=== PATIENT | female | born 1960 | race Hispanic/Latino ===

== ENCOUNTER 2016-12-10 13:28 | Inpatient (IN) | payer OTHER ==
--- NOTE | 2016-12-10 13:49 | ED PDOC ---
Arrival/HPI - General Chief Complaint: Palpitations Time Seen by Provider: 12/10/16 13:48 Historian: Patient - History of Present Illness Narrative History of Present Illness (Text): 12/10/16 13:48 A 56 year female, whose past medical history includes Hepatitis C, was sent into the emergency department by PMD complaining of worsening abdominal swelling over the course of 9 months. Patient notes intermittent shortness of breath and dyspnea on exertion since her abd. swelling began 9 months ago. Patient denies any fever, nausea, vomiting, diarrhea, chest pain, shortness of breath or any other complaints. PMD: Dr. Moreira Time/Duration: Other (9 months) Symptom Course: Worsening Quality: Other Context: Other Past Medical History - Provider Review Nursing Documentation Reviewed: Yes - Infectious Disease Hx of Infectious Diseases: None - Tetanus Immunization Tetanus Immunization: Unknown - Past Medical History Past Medical History: No Previous - Cardiac Hx Cardiac Disorders: No - Pulmonary Hx Respiratory Disorders: No - Neurological Hx Neurological Disorder: No - HEENT Hx HEENT Disorder: No - Renal Hx Renal Disorder: No - Endocrine/Metabolic Hx Endocrine Disorders: No - Hematological/Oncological Hx Hepatitis C: Yes - Integumentary Hx Dermatological Disorder: No - Musculoskeletal/Rheumatological Hx Musculoskeletal Disorders: No - Gastrointestinal Hx Gastrointestinal Disorders: (hemmoroids and polyps) - Genitourinary/Gynecological Hx Genitourinary Disorders: No - Psychiatric Hx Depression: Yes Hx Emotional Abuse: No Hx Physical Abuse: No Hx Substance Use: No - Past Surgical History Past Surgical History: No Previous - Anesthesia Hx Anesthesia: No Hx Anesthesia Reactions: No Hx Malignant Hyperthermia: No - Suicidal Assessment Feels Threatened In Home Enviroment: No Family/Social History - Physician Review Nursing Documentation Reviewed: Yes Family/Social History: No Known Family HX Smoking Status: Heavy Smoker > 10 Cigarettes Daily Hx Alcohol Use: Yes Frequency of alcohol use: Few days per week Hx Substance Use: No Substance used: ALCOHOL Hx Substance Use Treatment: Yes (AA) Allergies/Home Meds Allergies/Adverse Reactions: Allergies Penicillins Allergy (Verified 12/10/16 13:40) ANAPHYLAXIS Home Medications: Home Meds Medication Instructions Recorded Confirmed Clonazepam [Klonopin] 1 mg PO BID 03/10/12 01/22/15 Amitriptyline Hydrochloride 100 mg PO HS 01/22/15 01/22/15 [Elavil] Physical Exam - Physical Exam Narrative Physical Exam (Text): - Review of Systems Constitutional: Normal. absent: Fatigue, Weight Change, Fevers Eyes: Normal ENT: Normal Respiratory: (+) Shortness of breath, Dyspnea on exertion absent: Cough, Sputum Cardiovascular: Normal absent: Chest pain, Palpitations, Syncope Gastrointestinal: (+) Abdominal swelling absent: Diarrhea, Nausea, Vomiting Genitourinary: Normal. absent: Dysuria, Frequency, Hematuria Musculoskeletal: Normal. absent: Arthralgias, Back Pain, Neck Pain Skin: Normal Neurological: Normal absent: Focal Weakness Endocrine: Normal Hemo/Lymphatic: Normal Psychiatric: Normal - Physical exam Patient appears age appropriate, speaking full sentences without difficulty - Systems Exam Head: Present: Atraumatic, Normocephalic Pupils: Present: PERRL Extraocular Muscles: Present: EOMI Conjunctiva: Present: Normal Mouth: Present: Moist Mucous Membranes Neck: Present: Normal Range of Motion. No: MIDLINE TENDERNESS, Paraspinal Tenderness Respiratory/Chest: Present: Clear to Auscultation, Good Air Exchange. No: Respiratory Distress, Accessory Muscle Use, Tachypneic Cardiovascular: Present: Regular Rate and Rhythm, Normal S1, S2, Peripheral Pulses Present. No: Murmurs Abdomen: Present: Normal Bowel Sounds, Abdominal distension, no fluid wave No: Tenderness, Peritoneal Signs, Rebound, Guarding, Rebound, Rigidity Back: Present: Normal Inspection. No: Midline Tenderness, Paraspinal Tenderness Upper Extremity: Present: Normal Inspection. No: Cyanosis, Edema Lower Extremity: Present: Normal Inspection. No: Edema Neurological: Present: GCS=15, Speech Normal, cranial nerves II through XII fully intact with no cerebellar abnormality, neuro-sensory fully intact. No focal neurological deficits. Skin: Present: Warm, Dry, Normal Color. No: Rashes Lymphatic: Present: OX3, NI, NC Psychiatric: Present: Alert, Oriented x 3, Normal Insight, Normal Concentration Vital Signs Reviewed: Yes Vital Signs Temp Pulse Pulse Resp BP Pulse Ox 12/10/16 16:50 106 H 18 138/93 H 95 12/10/16 15:28 118 H 24 153/90 H 95 12/10/16 14:15 130 H 12/10/16 13:32 97.8 F 145 H 18 146/96 H 96 Temperature: Afebrile Blood Pressure: Hypertensive Pulse: Tachycardic Respiratory Rate: Normal Appearance: Positive for: Well-Appearing, Non-Toxic, Comfortable Pain Distress: None Mental Status: Positive for: Alert and Oriented X 3 Medical Decision Making ED Course and Treatment: 12/10/16 13:48 Impression: A 56 year old female with worsening abdominal swelling over 9 months. Patient notes some shortness of breath and dyspnea on exertion. Plan: -- Chest xray -- EKG -- Labs -- Urinalysis -- Reassess and disposition Progress Notes: EKG shows sinus tachycardia at [address]-segment elevations, normal intervals. Interpreted by me. 12/10/16 17:47 CT Abd/Pelvis IMPRESSION: Dr. Carolina Diverticulosis of the sigmoid colon with associated wall thickening possibly exaggerated by under distension however diverticulitis is not excluded. Hepatic steatosis. Dr. Lillie rosas, awaiting callback 12/10/16 18:17 pt's HR 120. TSH ordered denies cp/sob/beaulieu at this time pt has also been informed that she needs further testing to r/o PE I expressed my concern that we still have no concrete explanation for pt's symptoms and that she needs to be admitted into the hospital for further workup The patient refuses admission and wishes to leave the Emergency Department against my medical advice. Patient was told that admission to the hospital is necessary and a full explanation of the reasons why was given, and understood by patient. The risks of leaving were explained and include worsening of condition, and permanent disability and from an undiagnosed or untreated condition. The patient accepts these risks, and is in my judgment is competent and capable of understanding the clinical situation and my explanation of the risks of leaving. Patient was given the opportunity to ask questions and change mind. The patient was instructed regarding the best care for the present symptoms, and to follow up with Dr. Moreira as soon as possible, or return to the Emergency Department at any time for continuing care. 12/10/16 18:30 patient changed her mind and now states that she wants to stay in the hospital Dr. Lillie rosas again 12/10/16 19:02 florinda Moreira, agrees with remote tele admission to her service. aware to VQ or CTA to r/o PE Asked for Dr Moon on consult and ECHO - Lab Interpretations Lab Results: 12/10/16 14:20 12/10/16 14:20 Lab Results 12/10/16 14:20: WBC 10.7 D, RBC 4.51, Hgb 15.3, Hct 43.7, MCV 96.9, MCH 33.9, MCHC 35.0, RDW 12.8, Plt Count 325, MPV 9.3, Gran % 68.1 H, Lymph % (Auto) 24.8 , [place] % (Auto) 6.3 H, Eos % (Auto) 0.4 L, Baso % (Auto) 0.4, Gran # 7.28 H, Lymph # 2.7, [place] # 0.7 H, Eos # 0.0, Baso # 0.04, PT 10.6, INR 0.98, APTT 27.8 , Sodium 132, Potassium 4.6, Chloride 96 L, Carbon Dioxide 21, Anion Gap 20, BUN 11, Creatinine 0.9, Est GFR ( Amer) > 60, Est GFR (Non-Af Amer) > 60 , Random Glucose 110, Calcium 10.0, Total Bilirubin 0.8, AST 115 H, ALT 160 H, Alkaline Phosphatase 114, Lactate Dehydrogenase 1026 H, Total Creatine Kinase 145, Troponin I < 0.01, NT-Pro-B Natriuret Pep 68.4, Total Protein 8.6 H, Albumin 4.4, Globulin 4.1, Albumin/Globulin Ratio 1.1, Amylase 37, Lipase 79 12/10/16 14:15: Urine Color Yellow, Urine Appearance Clear, Urine pH 6.0, Ur Specific [place] 1.025, Urine Protein 30 H, Urine Glucose (UA) Negative, Urine Ketones Negative, Urine Blood Trace-lysed H, Urine Nitrate Negative, Urine Bilirubin Negative, Urine Urobilinogen 0.2, Ur Leukocyte Esterase Negative, Urine RBC 0 - 2, Urine WBC 2 - 5, Ur Epithelial Cells 4 - 5, Urine Bacteria Mod 12/10/16 14:00: D-Dimer, Quantitative 1.56 H I have reviewed the lab results: Yes - RAD Interpretation Narrative RAD Interpretations (Text): 12/10/16 18:17 Supervising Fire Marshal : Chinmay Junior MD Approver2 : Report Date : 12/10/2016 16:40:41 My Comment : HISTORY: abd pain COMPARISON: 06/26/2015 FINDINGS: LUNGS: No active pulmonary disease. PLEURA: No significant pleural effusion identified, no pneumothorax apparent. CARDIOVASCULAR: Normal. OSSEOUS STRUCTURES: No significant abnormalities. VISUALIZED UPPER ABDOMEN: Normal. OTHER FINDINGS: None. IMPRESSION: No active disease. Radiology Orders: 12/10/16 13:54 CHEST PORTABLE [RAD] Stat 12/10/16 14:00 ABD & PELVIS IV CONTRAST ONLY [CT] Stat Music Education Adjunct Professor: Radiologist - Medication Orders Current Medication Orders: Discontinued Medications Enoxaparin Sodium (Lovenox) 60 mg SC STAT STA PRN Reason: Protocol Stop: 12/10/16 18:50 Ceftriaxone Sodium (Rocephin 1 Gram Ivpb) 100 mls @ 200 mls/hr IV STAT STA PRN Reason: Protocol Stop: 12/10/16 14:35 Last Admin: 12/10/16 14:36 Dose: 200 MLS/HR eMAR Start Stop Document 12/10/16 14:36 [facility] (Rec: 12/10/16 14:36 [facility] [id number]) Intravenous Solution Start Date 12/10/16 Start Time 14:36 End Date 12/10/16 End time 15:06 Total Infusion Time 30 Sodium Chloride (Sodium Chloride 0.9%) 2,000 mls @ 1,000 mls/hr IV .Q2H STA Stop: 12/10/16 16:05 Last Admin: 12/10/16 14:35 Dose: 1,000 MLS/HR eMAR Start Stop Document 12/10/16 14:35 [facility] (Rec: 12/10/16 14:36 [facility] [id number]) Intravenous Solution Start Date 12/10/16 Start Time 14:36 End Date 12/10/16 End time 16:36 Total Infusion Time 120 Iohexol (Omnipaque 350 100 Ml) Confirm Administered Dose 350 mg .ROUTE .STK-MED ONE Stop: 12/10/16 15:01 - Scribe Statement The provider has reviewed the documentation as recorded by the Antonibmarina Tanner Provider Scribe Attestation: All medical record entries made by the Scribe were at my direction and personally dictated by me. I have reviewed the chart and agree that the record accurately reflects my personal performance of the history, physical exam, medical decision making, and the department course for this patient. I have also personally directed, reviewed, and agree with the discharge instructions and disposition. Disposition/Present on Arrival - Present on Arrival Any Indicators Present on Arrival: No History of DVT/PE: No History of Uncontrolled Diabetes: No Urinary Catheter: No History of Decub. Ulcer: No History Surgical Site Infection Following: None - Disposition Have Diagnosis and Disposition been Completed?: Yes Diagnosis: Abdominal distention Disposition: HOSPITALIZED Disposition Time: 18:21 Patient Plan: Discharge Patient Problems: Current Active Problems Problem Status Diagnosed Abdominal distention Acute Condition: STABLE Discharge Instructions (ExitCare): Abdominal Pain (ED), Dyspnea (ED) Additional Instructions: PLEASE RETURN TO THE EMERGENCY DEPARTMENT FOR NEW OR WORSENING SYMPTOMS. RETURN RIGHT AWAY IF YOU CANNOT FOLLOW UP WITH YOUR PRIMARY CARE DOCTOR, CLINIC, OR SPECIALIST IN 1-2 DAYS. Prescriptions: Moxifloxacin [Avelox] 400 mg PO DAILY #7 tab Referrals: Connie Moreira MD [Primary Care Provider] - Follow up with primary
[2016-12-10] MEDS ORDERED: cefTRIAXone 1 gm 100 ML IV STA (14:06)
[2016-12-10] MEDS ORDERED: Sodium Chloride 0.9% 2,000 ML IV STA (14:06)
[2016-12-10 14:19] LABS: URINE APPEARANCE CLEAR (CLEAR); URINE BILIRUBIN NEGATIVE (NEGATIVE); URINE BLOOD TRACE-LYSED (NEGATIVE); URINE COLOR YELLOW (YELLOW); URINE GLUCOSE (UA) NEGATIVE (NEGATIVE); URINE KETONE NEGATIVE (NEGATIVE); URINE LEUKOCYTE ESTERASE NEGATIVE Leu/uL (NEGATIVE); URINE PROTEIN 30 mg/dL (<30 mg/dL); URINE UROBILINOGEN 0.2 E.U./dL (<1 E.U./dL)
[2016-12-10 14:29] LABS: ADD MANUAL DIFF? NO
[2016-12-10 14:36] LABS: BASO # 0.04 K/mm3 (0.0-2.0); BASO % 0.4 % (0.0-3.0); EOS % 0.4 % (1.5-5.0); GRAN # 7.28 (1.4-6.5); GRAN % 68.1 % (50.0-68.0); HEMATOCRIT 43.7 % (36.0-48.0); LYMPH # 2.7 (1.2-3.4); LYMPH % 24.8 % (22.0-35.0); MEAN CELL VOLUME 96.9 fL (80.0-105.0); MEAN CORPUSCULAR HEMOGLOBIN 33.9 pg (25.0-35.0); MEAN PLATELET VOLUME 9.3 fl (7.0-11.0); MONO # 0.7 (0.1-0.6); MONO % 6.3 % (1.0-6.0); PLATELET COUNT 325 10^3/uL (120.0-450.0); RED CELL DISTRIBUTION WIDTH 12.8 % (11.5-14.5); WHITE BLOOD COUNT 10.7 10^3/ul (4.5-11.0)
[2016-12-10 14:44] LABS: URINE BACTERIA MOD (NEG); URINE RBC 0 - 2 /hpf (0-2)
[2016-12-10 14:45] LABS: INR 0.98 (0.93-1.08); PARTIAL THROMBOPLASTIN TIME 27.8 Seconds (23.7-30.8)
[2016-12-10 14:46] LABS: ALB/GLOB RATIO 1.1 (1.1-1.8); ALKALINE PHOSPHATASE 114 U/L (38-133); ALT/SGPT 160 U/L (7-56); AMYLASE 37 U/L (35-125); AST/SGOT 115 U/L (15-39); BILIRUBIN,TOTAL 0.8 mg/dL (0.2-1.3); BLOOD UREA NITROGEN 11 mg/dL (7-21); CARBON DIOXIDE 21 mmol/L (21-33); CHLORIDE 96 mmol/L (98-107); GFR AFRICAN-AMERICAN > 60; GLUCOSE,RANDOM 110 mg/dL (70-110); LIPASE 79 U/L (23-300); POTASSIUM 4.6 mmol/L (3.6-5.0); SODIUM 132 mmol/L (132-148); TOTAL PROTEIN 8.6 g/dL (5.8-8.3)
[2016-12-10] MEDS ORDERED: Iohexol 350 MG/100 ML VIAL ONE (15:00)
[2016-12-10 15:04] LABS: TROPONIN I < 0.01 ng/mL
--- NOTE | 2016-12-10 15:20 | CARD ---
APPROVED REPORT EKG Measurement Heart [id number] <Conclusion> Sinus tachycardia NSSTW changes
--- NOTE | 2016-12-10 16:42 | RAD ---
HISTORY: abd pain COMPARISON: 06/26/2015 FINDINGS: LUNGS: No active pulmonary disease. PLEURA: No significant pleural effusion identified, no pneumothorax apparent. CARDIOVASCULAR: Normal. OSSEOUS STRUCTURES: No significant abnormalities. VISUALIZED UPPER ABDOMEN: Normal. OTHER FINDINGS: None. IMPRESSION: No active disease.
--- NOTE | 2016-12-10 17:47 | CT ---
PROCEDURE: CT Abdomen and Pelvis with contrast HISTORY: abd pain COMPARISON: None available. TECHNIQUE: Contrast dose: 100 mL Omnipaque 350 Radiation dose: Total exam DLP = 397.46 mGy-cm. This CT exam was performed using one or more of the following dose reduction techniques: Automated exposure control, adjustment of the mA and/or kV according to patient size, and/or use of iterative reconstruction technique. FINDINGS: LOWER THORAX: Minimal bibasilar atelectasis. No visible pleural effusion or pneumothorax. LIVER: Hypoattenuation of the liver compatible with hepatic steatosis. GALLBLADDER AND BILE DUCTS: Unremarkable. PANCREAS: Unremarkable. SPLEEN: Unremarkable. ADRENALS: Unremarkable. KIDNEYS AND URETERS: The kidneys enhance symmetrically. No hydronephrosis or obstructing calculus identified. VASCULATURE: No aortic aneurysm. BOWEL: The stomach is nondistended. Lack of oral contrast limits evaluation for bowel pathology. Bowel loops appear within normal limits of caliber without evidence of obstruction. Diverticulosis of the sigmoid colon with associated wall thickening possibly exaggerated by under distension however diverticulitis is not excluded. APPENDIX: The appendix appears within normal limits of caliber. No secondary signs of acute appendicitis. PERITONEUM: No significant free fluid. No definite free air. LYMPH NODES: No bulky adenopathy identified. BLADDER: Unremarkable. REPRODUCTIVE: The uterus is present. BONES: Degenerative changes of the spine. Osseous demineralization. Scoliosis. OTHER FINDINGS: Tiny fat containing umbilical hernia. IMPRESSION: Diverticulosis of the sigmoid colon with associated wall thickening possibly exaggerated by under distension however diverticulitis is not excluded. Hepatic steatosis. Additional incidental findings as above.
[2016-12-10] MEDS ORDERED: Enoxaparin 60 mg Syringe SC STA (18:49)
[2016-12-10 21:32] VITALS: BMI 26.2
[2016-12-11 08:09] LABS: BLOOD UREA NITROGEN 10 mg/dL (7-21); CALCIUM 8.8 mg/dL (8.4-10.5); CARBON DIOXIDE 22 mmol/L (21-33); CHLORIDE 105 mmol/L (98-107); GFR AFRICAN-AMERICAN > 60; GLUCOSE,RANDOM 94 mg/dL (70-110); POTASSIUM 3.9 mmol/L (3.6-5.0); SODIUM 134 mmol/L (132-148)
--- NOTE | 2016-12-11 09:30 | CON ---
DATE: 12/10/2016 SUBJECTIVE: This patient was seen and evaluated earlier and discussed with Dr. Moreira. This 56-year -old patient with a history of chronic hepatitis , being followed by in , noticed to have significant abdominal distention and weight gain. The patient also complaining of shortness of breath on exertion, sent to the ER for further evaluation. The patient denies any abdominal pain , vomiting, no bleeding per rectum. SOCIAL HISTORY: As above. OTHER PAST MEDICAL HISTORY: Significant for history of anxiety, depression. The patient is on amitr iptyline and also Klonopin. ALLERGIES: PENICILLIN, ANAPHYLACTIC TYPE OF REACTION. REVIEW OF SYSTEMS: All [id number] systems reviewed; positive as above. OBJECTIVE: GENERAL: The patient is lying on the bed. The patient's boyfriend was at bedside. The patient is l kenisha on the bed, not in acute distress. VITAL SIGNS: Pulse 120 per minute, blood pressure is 130/88, respirations 20, O2 saturations 98. HEENT: Atraumatic, anicteric. NECK: Supple. HEART: S1, S2 heard. LUNGS: Bilateral air entry present. ABDOMEN: Soft. Softly distended, no mass, no tenderness. EXTREMITIES: No cyanosis, no clubbing. LABORATORY DATA: Hemoglobin 15.3, hematocrit 43.7, WBC 10.7, platelets 325. LFTs AST is 115, ALT is 160, LDH is . Urinalysis shows trace blood. Chemistry AST is 115, ALT 160, LDH . ASSESSMENT: This 56-year-old patient admitted with a history significant weight gain, abdominal dist ention and shortness of breath. The patient has a history of chronic hepatitis , was being foll owed. The patient had ultrasound scan of the abdomen done, which also showed no ascites, gallbladder normal, common bile duct prominent measuring up to 1.[address] scan of the abdomen and pelvis do ne. The etiology for dilated common bile duct is unclear. Per the patient, gastrointestinal consult was requested to evaluate. The ultrasound was reviewed and no ascites noticed. We would recommend . There is no ascites noted. The liver was very fatty. PLAN: 1. Request for an MRI of the abdomen with MRCP to further evaluate the common bile duct. 2. Start the patient on a clear liquid diet. 3. Request for hepatitis profile, and viral load and genotype. Thank you very much for allowing us to care for this patient. Luisa Moon MD cc: [phone] TT: 12/11/2016 07:51:37 Confirmation # [id number] Dictation # [id number] 12/11/2016 08:30:04
[2016-12-11 09:43] LABS: BILIRUBIN,DIRECT 0.6 mg/dL (0.0-0.4); BILIRUBIN,TOTAL 0.8 mg/dL (0.2-1.3); TOTAL PROTEIN 7.5 g/dL (5.8-8.3)
--- NOTE | 2016-12-11 13:19 | HP ---
HISTORY OF PRESENT ILLNESS: The patient is a 56-year-old known to me from office practice. She was seen in office yesterday with increasing abdominal girth, getting short of breath. She was found to be having palpitation, heart rate of 130. She denies any fever or chills. No cough or congestion. No history of nausea or vomiting, no more bleeding. She does have a history of rectal prolapse. She is being followed by a brickmason contractor in [place], ____. PAST MEDICAL HISTORY: Significant for: 1. Hepatitis C. 2. Chronic degenerative disk disease. 3. Anxiety disorder. ALLERGIES: SHE IS ALLERGIC TO PENICILLIN. MEDICATIONS AT HOME: She is on amitriptyline 100 mg at bedtime, Klonopin 1 mg t.i.d. p.r.n. She is on Percocet that she takes once at bedtime. SOCIAL HISTORY: She is single, lives with her boyfriend and his elderly mother. Currently, smokes, socially drinks. PHYSICAL EXAMINATION: GENERAL: She is awake and alert, communicative. VITAL SIGNS: She is afebrile, pulse upon arrival was 145. She was given dose of atenolol today, it is 81, blood pressure 129/89. LUNGS: Bilateral good airflow, no rhonchi or crackle. HEART: S1, S2 audible. ABDOMEN: Soft, nontender, no rebound, no guarding. NEUROLOGIC: The patient is awake and alert, communicative. LABORATORY EXAMINATION: WBC 10.7, hemoglobin 15, hematocrit 43, platelets 325. Chemistry: Sodium 1 34, potassium 3.9, chloride 105, CO2 of 22, BUN 10, creatinine 0.7, blood sugar of 94, her AST 115, A LT 160. Upon admission, LDH is 1026. CT scan of the abdomen and pelvis does not show ascites; howev er, she has hepatic steatosis. She had diverticulosis, but not associated diverticulitis. ASSESSMENT: 1. Sudden weight gain, etiology still unclear. 2. Hepatitis C. 3. Cirrhosis of liver. 4. Abnormal liver function tests, probably secondary to hepatitis C. PLAN: To have MRCP done. If that is unremarkable, she will be discharged home later on today. I tano l also follow up echocardiogram and Dr. Moon's input noted and appreciated. He ordered for viral load for hep C and genotype. We will follow that and if patient remains stable, MRCP is unremarkabl e, she will be discharged home later on today. Connie Moreira MD cc: [phone] TT: 12/11/2016 13:18:52 tn
[2016-12-11] MEDS ORDERED: Gadodiamide 287 MG/ML VIAL (15ML) IV ONE (15:07)
--- NOTE | 2016-12-11 15:36 | PN ---
DATE: 12/11/2016 Seen and examined at the bedside earlier today. Her is at the bedside. She denies any curre nt nausea, vomiting, or abdominal pain. Her shortness of breath is a little bit better. The patient denies any episodes of diarrhea or any overt GI bleed. VITAL SIGNS: Temperature is 98, blood pressure is 129/89 and pulse 81, respirations 18, 97% on room air. LABORATORIES: Today is sodium 134, K is 3.9, BUN is 10, creatinine 0.7, direct bilirubin is 0.6, AST 82, ALT 119. This is improved. Alkaline phosphatase is 96. PHYSICAL EXAMINATION: HEENT: Sclera is anicteric. NECK: Supple. CARDIAC: S1, S2. LUNGS: With decreased breath sounds, but good bilateral airflow. No rales or wheeze. ABDOMEN: With bowel sounds, softly distended, nontender on palpation. No rebound or guarding, or or ganomegaly. ASSESSMENT: This is a 56-year-old female with a history of hepatitis C and cirrhosis of the liver. She comes with complaints of shortness of breath. The patient is also tobacco user. Complains of dewitt dden weight gain of about 30 pounds in 2 months. She denies nausea, vomiting, no abdominal pain. Co mplains of weight gain of 30 pounds. Denies any anorexia or any overt gastrointestinal bleed. The p atient is noted to have abnormal LFTs, could be secondary to the hepatitis C. PLAN: The patient is waiting to go for an MRCP. She is supposed to go this afternoon. We will foll ow up the viral load for the hepatitis C genotype. Also, continue to trend her LFTs. Continue curre ntly on a heart healthy diet. We will follow up. The patient was seen and case discussed with Dr. Moon. ADDENDUM: The patient had colonoscopy about 2-1/2 years ago, found to have diverticulosis. Deborah Otero FLO cc: [phone] TT: 12/11/2016 15:10:04 Confirmation # [id number] Dictation # [id number]
--- NOTE | 2016-12-11 19:33 | MRI ---
EXAM: MR Abdomen Without Intravenous Contrast, MRCP Protocol CLINICAL HISTORY: 56 years old, female; Pain; Abdominal pain; Generalized; Additional info: Dilated cbd TECHNIQUE: Multiplanar magnetic resonance images of the abdomen without intravenous contrast using MRCP protocol. EXAM DATE/TIME: 12/11/2016 12:47 AM COMPARISON: Recent CT abdomen 12/10/2016 5:11:34 PM EXAM: MR Abdomen Without Intravenous Contrast, MRCP Protocol CLINICAL HISTORY: 56 years old, female; Pain; Abdominal pain; Generalized; Additional info: Dilated cbd TECHNIQUE: Multiplanar magnetic resonance images of the abdomen without intravenous contrast using MRCP protocol. EXAM DATE/TIME: 12/11/2016 12:47 AM COMPARISON: Recent CT abdomen 12/10/2016 5:11:34 PM FINDINGS: BILE DUCTS: Common bile left is mildly dilated, measuring 8 mm (normal less than 6 mm). No cause for this finding is seen on this exam. No evidence of significant intrahepatic biliary ductal dilatation. GALLBLADDER: Within normal limits in appearance. No gallstones seen. No evidence of pericholecystic fluid. LIVER: Fatty infiltration of the liver. No focal lesions seen. PANCREAS: Pancreatic duct is seen, but is not abnormally dilated, measuring 2 mm in diameter. No CT evidence of acute pancreatitis. No definite focal pancreatic lesions identified. IMPRESSION: - Mild dilatation of the common bile duct, 8 mm, cause not identified on this exam. Recommend correlation with LFTs. -See above for remaining findings.
[2016-12-12 09:16] VITALS: BP 141/84; PULSE 99; RESP 19; TEMP 97.5; O2SAT 96
--- NOTE | 2016-12-12 10:39 | CARD ---
APPROVED REPORT EXAM: Two-dimensional and M-mode echocardiogram with Doppler and color Doppler. Other Information Quality : AverageRhythm : INDICATION Dyspnea 2D DIMENSIONS Left Atrium (2D)3.0 (1.6-4.0cm)IVSd1.1 (0.7-1.1cm) LVDd4.0 (3.9-5.9cm)PWd1.0 (0.7-1.1cm) LVDs2.9 (2.5-4.0cm)FS (%) 27.6 % LVEF (%)54.0 (>50%) M-Mode DIMENSIONS Aortic Root2.30 (2.2-3.7cm)Aortic Cusp Exc.1.60 (1.5-2.0cm) Aortic Valve AoV Peak Kpatexqp664.0cm/s Mitral Valve E/A ratio0.0 TDI E/Lateral E'0.0E/Medial E'0.0 Tricuspid Valve TR Peak [id number] [id number] Peak Gr.17mmHg [id number] LEFT VENTRICLE The left ventricle is normal size. There is normal left ventricular wall thickness. The left ventricular function is normal. The left ventricular ejection fraction is within the normal range. There is normal LV segmental wall motion. RIGHT VENTRICLE The right ventricle is normal size. ATRIA The left atrium size is normal. The right atrium size is normal. The interatrial septum is intact with no evidence for an atrial septal defect. AORTIC VALVE The aortic valve is normal in structure. MITRAL VALVE The mitral valve is normal in structure. Mitral regurgitation is mild. TRICUSPID VALVE The tricuspid valve is normal in structure. There is trace to mild tricuspid regurgitation. PULMONIC VALVE The pulmonic valve is not well visualized. GREAT VESSELS The aortic root is normal in size. PERICARDIAL EFFUSION There is no pericardial effusion. <Conclusion> The left ventricle is normal size. There is normal left ventricular wall thickness. The left ventricular function is normal. Mitral regurgitation is mild.
--- NOTE | 2016-12-12 14:07 | PN ---
DATE: 12/11/2016 This is an addendum to the GI progress report dictated by Deborah Otero NP. The patient was seen and evaluated today. The patient is doing well. The CAT scans are reviewed. T his patient has chronic liver disease, hep C, abdominal distension, weight gain. The CT does not juan w any focal hepatic lesion, otherwise no ____. The patient would benefit from treatment for hep C. The patient was followed by ____ before, first responder. The patient would benefit from hepa tology followup in view of the cirrhosis and the chronic hep C. The CT shows a hyperattenuation with steatosis. The patient has no abdominal pain, otherwise. We would recommend: 1. Hepatology followup as an outpatient. The patient's ultrasound scan done revealed the question o f CBD dilation. MRCP done in view of the history of CBD dilation with the ultrasound. The patient d id have an MRCP done. MRCP showed only mild dilation 8 mm. The patient needs an outpatient GI follo wup. This was explained to the patient who understands. Luisa Moon MD cc: [phone] TT: 12/12/2016 14:07:04 Confirmation # [id number] Dictation # [id number] tn
--- NOTE | 2016-12-12 20:22 | DS ---
The patient is a 56-year-old who was seen and examined, doing well, sitting in chair. No chest pain, no shortness of breath. PHYSICAL EXAMINATION: VITAL SIGNS: She is afebrile, pulse 99, respirations 19, blood pressure 141/84. LUNGS: Bilateral good airflow, no rhonchi or crackle. HEART: S1, S2 audible. Regular rate and rhythm. ABDOMEN: Soft, obese, nontender, no rebound, no guarding. NEUROLOGIC: The patient is awake and alert, communicative, ambulatory. LABORATORY EXAM: There is no new lab available today. AST 82, ALT 119. ASSESSMENT: 1. Hepatitis C. 2. Minimal ascites. 3. Degenerative disk disease. 4. Dilated common bile duct. MRCP done and is not impressive to do any intervention, and she only h as mild dilation. PLAN: I discussed with Dr. Moon. Plan is to refer her to Dr. Kelly as outpatient for possible t reatment. Because of insurance reasons, her hepatitis C treatment is not being covered and Dr. Kelly is getting a becca from [facility] to treat hep C patients. Will refer her there for initia tion of her hepatitis C treatment. The patient will be discharged home in stable condition. Connie Moreira MD cc: [phone] TT: 12/12/2016 20:22:08 holly
[2016-12-15 21:56] LABS: HEPATITIS C VIRAL RNA QUAL Detected (())
== END 2016-12-12 12:17 | disposition home or self-care (01) | DRG 202 ==
LOC: ED 13:28 → ERH 19:04 → 3RSO 20:45
PROVIDERS: ADMIT Internal Medicine; ATTEND Internal Medicine
DX: K74.60 Unspecified cirrhosis of liver (principal); R18.8 Other ascites; B18.2 Chronic viral hepatitis C; K83.8 Other specified diseases of biliary tract; M51.9 Unspecified thoracic, thoracolumbar and lumbosacral intervertebral disc disorder; K57.90 Diverticulosis of intestine, part unspecified, without perforation or abscess without bleeding; F32.9 Major depressive disorder, single episode, unspecified; F41.9 Anxiety disorder, unspecified; Z72.0 Tobacco use; Z88.0 Allergy status to penicillin

== ENCOUNTER 2017-01-28 16:24 | Observation (INO) | payer OTHER ==
[2017-01-28 16:24] VITALS: BMI 26.2
[2017-01-28] MEDS ORDERED: TDAP Vaccine 0.5 mL Syr IM ONE (16:34)
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
[2017-01-28 16:43] VITALS: TEMP 98
[2017-01-28 16:46] VITALS: O2SAT 95
[2017-01-28] MEDS ORDERED: Albuterol-Ipratrop 3 mg / 0.5 (3 ml) UD IH STA (17:00)
[2017-01-28] MEDS ORDERED: Multivitamin (MVI) 10 ML, Thiamine 100 MG, Folic Acid 1 MG in Dextrose 5% In Water 1,00... IV ONE (17:25)
[2017-01-28 17:41] LABS: ADD MANUAL DIFF? NO
[2017-01-28 17:45] LABS: BASO # 0.03 K/mm3 (0.0-2.0); BASO % 0.4 % (0.0-3.0); EOS % 0.6 % (1.5-5.0); GRAN % 64.5 % (50.0-68.0); HEMATOCRIT 40.9 % (36.0-48.0); LYMPH # 2.1 (1.2-3.4); LYMPH % 30.1 % (22.0-35.0); MEAN CELL VOLUME 96.7 fL (80.0-105.0); MEAN CORPUSCULAR HEMOGLOBIN 33.6 pg (25.0-35.0); MEAN CORPUSCULAR HGB CONC 34.7 g/dl (31.0-37.0); MEAN PLATELET VOLUME 9.3 fl (7.0-11.0); MONO # 0.3 (0.1-0.6); MONO % 4.4 % (1.0-6.0); PLATELET COUNT 339 10^3/uL (120.0-450.0); RED CELL DISTRIBUTION WIDTH 13.3 % (11.5-14.5)
[2017-01-28 18:01] LABS: ALB/GLOB RATIO 1.1 (1.1-1.8); ALKALINE PHOSPHATASE 120 U/L (38-133); ALT/SGPT 141 U/L (7-56); AST/SGOT 106 U/L (15-39); BILIRUBIN,TOTAL 0.3 mg/dL (0.2-1.3); BLOOD UREA NITROGEN 9 mg/dL (7-21); CALCIUM 9.7 mg/dL (8.4-10.5); CARBON DIOXIDE 22 mmol/L (21-33); CHLORIDE 107 mmol/L (98-107); GFR AFRICAN-AMERICAN > 60; GLUCOSE,RANDOM 123 mg/dL (70-110); MAGNESIUM 2.1 mg/dL (1.7-2.2); POTASSIUM 3.8 mmol/L (3.6-5.0); SODIUM 141 mmol/L (132-148); TOTAL PROTEIN 8.1 g/dL (5.8-8.3)
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
--- NOTE | 2017-01-28 18:29 | RAD ---
HISTORY: medical clearance COMPARISON: Chest x-ray performed 12/10/16 TECHNIQUE: Chest, one view. FINDINGS: Examination limited by habitus and hypoinflation. LUNGS: Probable bibasilar atelectasis. Please note that chest x-ray has limited sensitivity for the detection of pulmonary masses. PLEURA: No significant pleural effusion identified. No definite pneumothorax . CARDIOVASCULAR: Heart size appears borderline enlarged, likely exaggerated by hypoinflation. OSSEOUS STRUCTURES: No acute osseous abnormality identified. VISUALIZED UPPER ABDOMEN: Unremarkable. OTHER FINDINGS: None. IMPRESSION: Hypoinflation. Elevation of the right hemidiaphragm. Probable bibasilar atelectasis.
[2017-01-28 18:40] VITALS: BP 141/85; PULSE 113; RESP 18
== END 2017-01-28 21:55 | disposition home or self-care (01) ==
LOC: ED 16:24 → EROBSV 18:22
PROVIDERS: ADMIT Emergency Medicine; ATTEND Emergency Medicine
DX: S00.81XA Abrasion of other part of head, initial encounter (principal); V49.49XA Driver injured in collision with other motor vehicles in traffic accident, initial encounter; Y92.410 Unspecified street and highway as the place of occurrence of the external cause; F10.129 Alcohol abuse with intoxication, unspecified; Y90.8 Blood alcohol level of 240 mg/100 ml or more; Z23 Encounter for immunization
CPT/HCPCS: 70450; 70486; 71010; 80053; 80320; 80324; 80345; 80346; 80349; 80353; 80358; 80361; 83735; 83992; 85025; 90471; 90715; 96360; 99285; G0378; J3411; J7070

== ENCOUNTER 2017-09-29 16:35 | Emergency (ER) | payer OTHER ==
[2017-09-29 16:52] VITALS: BMI 30.5
[2017-09-29 17:01] VITALS: BP 106/41
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
[2017-09-29 19:25] VITALS: TEMP 92
== END 2017-09-29 21:14 ==
LOC: ED 16:35
DX: I46.9 Cardiac arrest, cause unspecified (principal)